=== PATIENT | male | born 1975 | race Caucasian/White ===

== ENCOUNTER 2017-03-14 03:25 | Emergency (ER) | payer SELFPAY ==
[~2017-03-14] VITALS: Ht 167.6 cm; Wt 63.6 kg
[2017-03-14 03:30] VITALS: Ht 167.6 cm; Wt 63.6 kg
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
[2017-03-14 05:04] LABS: ADD SCAN DIFF NO
[2017-03-14 05:28] LABS: BASOPHILS % 0.4 % (0.0-2.0); EOSINOPHILS # 0.5 10^3/ul (0.0-0.5); EOSINOPHILS % 5.8 % (0.0-7.0); HEMATOCRIT 43.8 % (42.0-52.0); LYMPHOCYTES # 3.4 10^3/ul (0.8-2.9); LYMPHOCYTES % 37.6 % (15.0-51.0); MEAN CORPUSCULAR HEMOGLOBIN 31.3 pg (29.0-33.0); MEAN CORPUSCULAR HGB CONC 34.2 g/dl (32.0-37.0); MEAN CORPUSCULAR VOLUME 91.4 fl (82.0-101.0); MEAN PLATELET VOLUME 9.3 fl (7.4-10.4); MONOCYTE # 0.6 10^3/ul (0.3-0.9); NEUTROPHIL # 4.4 10^3/ul (1.6-7.5); PLATELET COUNT 277 10^3/UL (140-415); RED BLOOD COUNT 4.79 10^6/ul (4.70-6.10); RED CELL DISTRIBUTION WIDTH 12.1 % (11.5-14.5)
[2017-03-14 05:40] LABS: ALBUMIN 4.8 g/dl (3.3-4.9); ALBUMIN/GLOBULIN RATIO 1.77; BILIRUBIN,INDIRECT 0.2 mg/dl (0-1.1); BILIRUBIN,TOTAL 0.2 mg/dl (0.2-1.3); CALCIUM 9.3 mg/dl (8.4-10.2); CREATININE 0.74 mg/dl (0.61-1.24); TOTAL PROTEIN 7.5 g/dl (6.1-8.1)
[2017-03-14] MEDS ORDERED: SOD CHLORIDE 0.9% 100 ML ONE (05:44)
[2017-03-14] MEDS ORDERED: IOHEXOL 300MG/ML 150 ML BTL ONE (05:44)
[2017-03-14 05:46] LABS: PROTIME 13.2 Sec (12.2-14.2)
[2017-03-14 05:47] LABS: PARTIAL THROMBOPLASTIN TIME 30.3 Sec (25.0-35.0)
[2017-03-14 05:48] VITALS: BP 128/80; PULSE 77; RESP 17
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
--- NOTE | 2017-03-14 06:31 | RADRPT ---
PROCEDURE: CT cervical spine without contrast. CLINICAL INDICATION: Abdominal Pain TECHNIQUE: Axial imaging was obtained through the cervical spine using a multi-slice CT scanner. [facility] of the cervical spine without contrast protocols were performed. CTDI: 22.39 and DLP: 646.24. One or more of the following dose reduction techniques were used: - Automated exposure control. - Adjustment of the mA and/or kV according to patient size. Use of iterative reconstruction technique. COMPARISON: None. FINDINGS: There is mild reversal of the normal cervical lordosis. The patient is somewhat tilted and rotated during imaging. There is no evidence of acute fractures or subluxations. The bony mineralization i s normal. No focal bony blastic or lytic lesions. The posterior elements are intact. There is mod erate degenerate disease and spondylosis at the C5-6 disk level without central spinal canal stenosi s or neural foraminal narrowing. There is minimal scarring at the lung apices. This portion the ai rway visualized are otherwise unremarkable. The soft tissues are unremarkable. IMPRESSION: 1. No evidence acute fractures subluxations or stenosis. 2. Mild degenerate disease and spondylosis at the C5-6 disk level. RPTAT:AAJJ Physician Zeke Date Time Electronically viewed and signed by Physician Zeke on 03/14/2017 06:31 /
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
== END 2017-03-14 09:12 | disposition home or self-care (01) ==
LOC: E/R 03:25
DX: S19.9XXA Unspecified injury of neck, initial encounter (principal); R40.2252 Coma scale, best verbal response, oriented, at arrival to emergency department; F17.210 Nicotine dependence, cigarettes, uncomplicated; R93.0 Abnormal findings on diagnostic imaging of skull and head, not elsewhere classified; R07.9 Chest pain, unspecified; R40.2142 Coma scale, eyes open, spontaneous, at arrival to emergency department; R40.2362 Coma scale, best motor response, obeys commands, at arrival to emergency department; V89.2XXA Person injured in unspecified motor-vehicle accident, traffic, initial encounter
CPT/HCPCS: 36415; 70450; 71260; 72125; 74177; 80053; 80306; 83690; 85025; 85610; 85730; 99285; Q9967